=== PATIENT | male | born 1945 | race Caucasian/White ===

== ENCOUNTER → 2017-03-28 | Outpatient (CLI) | payer MEDICARE, OTHER | LOC: CARD 13:29 | PROVIDERS: ATTEND Internal Medicine | DX: R01.1 Cardiac murmur, unspecified (principal) | CPT/HCPCS: 93306 ==

== ENCOUNTER 2019-12-05 10:55 | Emergency (ER) | payer MEDICARE ==
[~2019-12-05] VITALS: Ht 182.8 cm; Wt 90.9 kg
[2019-12-05 10:59] VITALS: BP 134/72
--- OUTSIDE RECORDS SUMMARY | 2019-12-05 10:59 | XMS REPORT | Continuity of Care Document ---
Author Author [facility] Organization [facility] Address Unknown Phone Unavailable Allergies There is no data. Medications There is no data. Problems Date Dx Coded Attending Type Code Diagnosis Diagnosed By 03/29/2017 RENETTA DAY DO Ot R01.1 CARDIAC MURMUR, UNSPECIFIED 04/18/2017 RENETTA DAY DO Ot R01.1 CARDIAC MURMUR, UNSPECIFIED Procedures There is no data. Results There is no data. Encounters ACCT No. Visit Date/Time Discharge Status Pt. Type Provider Facility Loc./Unit Complaint [id number] 03/28/2017 13:29:00 017 23:59:59 CLS Outpatient RENETTA DAY DO [facility] CARD R01.1 HEART MURMUR [id number] 12/05/2019 10:56:[address] Emergency JOSE SHAW, VELASQUEZ Grant [facility] ER R ANKLE PAIN
[2019-12-05] MEDS ORDERED: TRAM50TA3 (11:26)
[2019-12-05] MEDS ORDERED: HYDR-3812 (11:26)
[2019-12-05] MEDS ORDERED: ATOR10TA66 (11:26)
[2019-12-05] MEDS ORDERED: METF-399 (11:26)
[2019-12-05] MEDS ORDERED: LISI10TA2 (11:26)
--- NOTE | 2019-12-05 11:42 | Diagnostic Imaging Report ---
INDICATION: Right ankle pain times 1-1/2 weeks with no known injury. TECHNIQUE: Three views of the right ankle CORRELATION STUDY: None FINDINGS: The bony alignment is anatomic. The talar dome is intact. The ankle mortise is maintained. There is no acute fracture or dislocation. There is the presence of small bone fragments adjacent to the medial malleolus, may be reflective of a more remote injury. There is prominent enthesopathy with spur-like formation at the Achilles tendon insertion site as well as plantar fascia. Prominent vascular calcification. No soft tissue foreign body. IMPRESSION: Negative for acute bony abnormality of the ankle. Dictated by: Dictated on workstation # [id number]
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
--- NOTE | 2019-12-05 12:07 | Diagnostic Imaging Report ---
EXAM: Right tibia-fibula 11:52 AM INDICATION: Ankle pain TECHNIQUE: AP and lateral views were obtained. FINDINGS: There is no fracture, dislocation or acute bony abnormality evident. The small calcific density adjacent to the medial aspect of the medial malleolus of the distal tibia noted on the right ankle exam performed in conjunction with the study is again evident. This may be a sequela of prior trauma. The ankle and knee joints are fairly well-maintained. There is chondrocalcinosis of both menisci. The soft tissues are unremarkable. IMPRESSION: There is no evidence for an acute bony abnormality. Dictated by: Dictated on workstation # [id number]
== END 2019-12-05 11:58 | disposition home or self-care (01) ==
LOC: EDUNIT# 10:55 → ER 10:56
DX: M25.571 Pain in right ankle and joints of right foot (principal); F17.200 Nicotine dependence, unspecified, uncomplicated; X58.XXXA Exposure to other specified factors, initial encounter
CPT/HCPCS: 73590; 73610

== ENCOUNTER → 2019-12-14 | Outpatient (CLI) | payer MEDICARE ==
[~2019-12-14] MED LIST: ATOR10TA66; HYDR-3812; LISI10TA2; METF-399; TRAM50TA3
--- NOTE | 2019-12-14 15:48 | Diagnostic Imaging Report ---
EXAMINATION: Magnetic resonance imaging of the right knee without intravenous contrast. DATE: December 14, 2019. COMPARISON: None. INDICATION: 73-year-old male, right knee injury 3 weeks ago. Right knee pain. TECHNIQUE: Multiplanar, multisequence non contrast enhanced MR imaging was accomplished. FINDINGS: MENISCI: There is an oblique tear with inferior surface extension involving the body, posterior horn, and posterior root attachment of the medial meniscus. There is extension of some medial meniscal tissue into the inferior gutter. There is a longitudinal horizontal type tear involving the anterior horn, body, and posterior horn of the lateral meniscus. LIGAMENTS AND TENDONS: The anterior and posterior cruciate ligaments are intact. The medial collateral ligament is intact. The iliotibial band, mid third lateral capsular ligament, fibular collateral ligament, biceps femoris tendon, and conjoined tendon are intact. There is severe tendinopathy of the distal quadriceps tendon. There is no complete tear of the distal quadriceps tendon. The patellar tendon is intact. JOINT: There is mild generalized patellar cartilage thinning. There are broad areas of approximately 50-75% cartilage loss involving the femoral trochlea. The medial and lateral compartment cartilage appears grossly intact. BONE: There is a remote prior fracture deformity of the upper patella with well-corticated fracture margins. There is a fluid-filled fracture gap measuring approximately 5 mm in thickness. There is no acute fracture. The additional bone marrow signal is unremarkable. BURSAE AND SOFT TISSUES: There is a very small slit-like Membreno's cyst. IMPRESSION: 1. Tears of the medial and lateral meniscus as above. There is extension of some medial meniscal tissue into the inferior gutter. 2. Intact anterior and posterior cruciate ligaments. 3. Severe distal quadriceps tendinopathy. 4. 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 5. No acute fracture, bone contusion, or evidence of osteonecrosis. 6. Moderate patellofemoral compartment osteoarthritis. No knee joint effusion. Dictated by: Dictated on workstation # [id number]
--- NOTE | 2019-12-14 18:09 | Diagnostic Imaging Report ---
EXAMINATION: Magnetic resonance imaging of the right ankle without contrast. DATE: December 14, 2019. COMPARISON: None. HISTORY: 73-year-old male, right ankle pain. Injury 3 weeks ago. TECHNIQUE: Magnetic Resonance Imaging sequences were performed of the ankle without contrast. [< >] FINDINGS: TENDONS AND LIGAMENTS: The Achilles tendon is unremarkable. The posterior flexor tendons - tibialis posterior, flexor digitorum longus, flexor hallucis longus - are intact. The peroneal tendons - peroneus longus and peroneus brevis - are intact. The anterior extensor tendons - tibialis anterior, extensor hallucis longus and extensor digitorum longus tendons - are intact. The anterior and posterior syndesmotic ligaments are intact. The anterior talofibular, posterior talofibular, calcaneofibular and deltoid ligaments are intact. There is thickening of the medial cord of the plantar fascia and a calcaneal heel spur. There is no evidence of active plantar fasciitis. JOINTS: There is no tibiotalar or subtalar joint effusion. There is very minimal tibiotalar osteoarthritis with small subchondral cyst in the distal tibia. There is mild midfoot arthritis perhaps best illustrated on sagittal STIR sequence image 16. BONE: The bones all have normal configuration. The bone marrow signal is within normal limits. Specifically, negative for fracture, osteomyelitis, osteonecrosis, or marrow replacing process. The talar dome is intact. BURSAE AND SOFT TISSUES: There is fatty atrophy and edema-like signal within the foot musculature which is partially imaged. IMPRESSION: 1. No acute fracture or bone contusion. 2. Intact ankle tendons and ligaments. 3. Minimal osteoarthritis of the tibiotalar joint and mild midfoot arthritis. 4. Fatty atrophy and edema-like signal within the foot musculature which is partially imaged. This is likely denervation related. Dictated by: Dictated on workstation # [id number]
== END ==
LOC: RAD 14:45
PROVIDERS: ATTEND Internal Medicine
DX: S83.281A Other tear of lateral meniscus, current injury, right knee, initial encounter (principal); M25.571 Pain in right ankle and joints of right foot; M67.863 Other specified disorders of tendon, right knee; M17.11 Unilateral primary osteoarthritis, right knee
CPT/HCPCS: 73721

== ENCOUNTER → 2022-10-01 | Outpatient (CLI) | payer MEDICARE ==
[~2022-10-01] MED LIST changes: +ACHD5005; -HYDR-3812; -LISI10TA2; +LISI10TA25
== END ==
LOC: CARD 07:58
PROVIDERS: ATTEND Internal Medicine
DX: I51.7 Cardiomegaly (principal); I34.0 Nonrheumatic mitral (valve) insufficiency
CPT/HCPCS: 93306